=== PATIENT | female | born 1970 | race Two or more races ===

== ENCOUNTER 2016-11-14 09:55 | Emergency (ER) | payer OTHER ==
[~2016-11-14] VITALS: Ht 157.5 cm; Wt 77.1 kg
[2016-11-14 11:03] VITALS: BP 117/82
== END 2016-11-14 11:22 | disposition home or self-care (01) ==
LOC: ER 09:55
DX: J02.9 Acute pharyngitis, unspecified (principal); G43.909 Migraine, unspecified, not intractable, without status migrainosus